=== PATIENT | female | born 1955 | race Caucasian/White ===

== ENCOUNTER 2020-10-22 11:41 | Outpatient (REF) | payer MEDICARE, SELFPAY ==
--- NOTE | ~2020-10-22 | MM_ITS ---
EXAMINATION: MM SCREENING DIGITAL MAMMOGRAPHY, BILATERAL CLINICAL INFORMATION: Screening. Asymptomatic. The lifetime risk of breast cancer based on the Tyrer-Cuzick Model is 4%. COMPARISON: Mammography: 08/23/2019, 08/19/2018, 05/05/2016 TECHNIQUE: Digital mammography is performed in craniocaudal and mediolateral oblique views along with computer-aided detection (CAD). cat scan technologist notes challenging exam. Imaging and patient positioning tailored to patient capabilities. FINDINGS: The breasts are almost entirely fatty (ACR BI-RADS breast composition Category a). There are no significant masses, abnormal calcifications, or other abnormalities. The axilla are partly obscured related to challenges in positioning. There is a metallic ringlike structure overlying the posterior medial left breast on CC view, likely artifact from earring. The skin contours are smooth. There are no significant changes. MM/MM screening mammo BI IMPRESSION: No mammographic evidence of malignancy. ASSESSMENT: BI-RADS 2: Benign RECOMMENDATION: Routine annual mammography screening. This patient's information was entered into a reminder system with a target due date for their next mammogram.
== END 2020-10-22 11:42 | disposition home or self-care (01) ==
LOC: HO.MAMMO 11:41
PROVIDERS: Visit Provider Internal Medicine
DX: Z12.31 Encounter for screening mammogram for malignant neoplasm of breast (principal)
CPT/HCPCS: 77067

== ENCOUNTER 2021-02-17 11:29 | Emergency (ER) | payer MEDICARE, SELFPAY ==
--- NOTE | ~2021-02-17 | XR_ITS ---
EXAMINATION: XR KNEE, LEFT CLINICAL INFORMATION: Pain COMPARISON: 2011 TECHNIQUE: 5 views of the left knee. FINDINGS: Chronic moderately severe degenerative disease predominates in the lateral compartment with significant joint space loss, subchondral sclerosis and hypertrophic spurring. Persistent or recurrent small joint effusion. Generalized demineralization has worsened. No fracture or dislocation. Continued valgus deformity. Contour deformity of proximal fibula may represent a tiny osteochondroma. XR/XR knee LT 4V IMPRESSION: Chronic degenerative disease predominates in the lateral compartment with near complete joint space loss.
[2021-02-17 11:45] VITALS: BP 145/82; PULSE 61; RESP 16; TEMP 37.2; O2SAT 97; BMI 32.5
--- NOTE | 2021-02-17 13:08 | ED.GENADULT ---
HPI - General Adult General Chief complaint: General Medical Stated complaint: VEIN PAIN L LEG Time Seen by Provider: 02/17/21 12:59 Source: patient Mode of arrival: ambulatory History of Present Illness HPI narrative: 65-year-old female a with a past medical history of arthritis presenting to the ED complaining left knee pain x a few days. Reports slept wrong and woke up with pain. Denies known injury/trauma or fall. Denies numbness, tingling, weakness, fever, chills, redness, calf pain, SOB Onset (ago): day(s) Related Data Allergies Allergy/AdvReac Type Severity Reaction Status Date / Time No Known Allergies Allergy Unverified 02/29/20 15:02 Review of Systems Review of Systems: Constitutional: No Fever, No Chills ENT/Mouth: No Ear Pain, No sore throat Cardiovascular: No Chest Pain, No SOB Respiratory: No Cough, No Sputum, No Wheezing Gastrointestinal: No Nausea, No Vomiting, No Abdominal pain Genitourinary:, No Dysuria, No Urinary Incontinence Musculoskeletal: + joint pain, No Myalgias, + Joint Swelling Skin: No Skin Lesions, No rash Neuro: No Weakness, No Numbness, No Paresthesias Yes all other systems are reviewed and are negative [facility] Past Medical History Attestation statement: The following information was validated with the patient. Medical History (Updated 02/17/21 @ 14:32 by PEDRO Joyce) Arthritis Social History Social History Alcohol intake: never Patient Tobacco Use Status: Never used Tobacco Use of substances other than those prescribed or required for medical reasons: No Advance Directives: No Advance Directives Information Provided: No Physical Exam Vital Signs: Vital Signs: Last Vital Signs Temp 99.0 F 02/17/21 11:45 Pulse 68 02/17/21 13:23 Resp 16 02/17/21 13:23 BP 133/70 02/17/21 13:23 Pulse Ox 98 02/17/21 13:23 Body Mass Index 32.5 Const: General: cooperative, healthy appearing and no acute distress Orientation/consciousness: patient oriented x3 Limitations: no limitations HENMT: Head: Yes normal to inspection Ears: hearing grossly normal bilaterally General nose exam: Normal external nose present Face and sinus: Yes normal facial exam Eyes: General: appearance normal, both eyes and all related structures EOM: EOMs intact bilaterally Neck: Neck: Yes normal visual inspection Resp: Effort & Inspection: normal respiratory effort and no respiratory distress Cardio: Rate: regular rate Peripheral pulses: dorsalis pedis present Skin: Rashes: no rashes Wounds: no wounds Neuro: General: patient oriented x3 Extrem: Other: Left knee without notable deformity. Tender to palpation. Decreased flexion secondary to pain. No calf tenderness. No edema. Neurovascularly intact distally. Course Course Course Narrative: XR knee LT 4V IMPRESSION: Chronic degenerative disease predominates in the lateral compartment with near complete joint space loss. ? >> will place patient in an Jethro wrap to follow-up with orthopedics Medical Decision Making MDM Narrative Medical decision making narrative: 65-year-old female a with a past medical history of arthritis presenting to the ED complaining left knee pain x a few days. On exam VSS, NAD, physical exam as above no appreciable knee deformity. Decreased flexion secondary to pain. Concern for arthritis vs MSK pain vs tendons/ligamental or meniscal injury. Low concern for fracture or dislocation Plan: X-ray Discharge Plan Discharge Clinical Impression: Degenerative joint disease Patient Disposition: Home, Self-Care Instructions: Osteoarthritis (ED) Additional Instructions: Wear Jethro wrap at home as needed for comfort/Stability Naproxen as an anti-inflammatory/pain medication, take with food Your x-ray shows Referrals: Zaid Lim MD [Physician] - 1 week
[2021-02-17 13:23] VITALS: BP 133/70; PULSE 68; RESP 16; O2SAT 98
[2021-02-17 14:40] VITALS: BP 139/66; PULSE 68; RESP 16; O2SAT 98
== END 2021-02-17 14:46 | disposition home or self-care (01) ==
PROVIDERS: Emergency Provider Emergency Medicine; PCP Internal Medicine
DX: M17.12 Unilateral primary osteoarthritis, left knee (principal); M25.562 Pain in left knee
CPT/HCPCS: 73564; 99283; 99284

== ENCOUNTER 2021-11-12 11:46 | Outpatient (REF) | payer OTHER, SELFPAY ==
--- NOTE | ~2021-11-12 | MM_ITS ---
EXAMINATION: MM SCREENING DIGITAL BREAST TOMOSYNTHESIS, BILATERAL CLINICAL INFORMATION: Screening. Asymptomatic. The lifetime risk of breast cancer based on the Tyrer-Cuzick Model is 4%. COMPARISON: Mammography: 10/22/2020, 08/23/2019, 08/19/2018 TECHNIQUE: Digital breast tomosynthesis is performed in both the craniocaudal and mediolateral oblique views along with computer-aided detection (CAD). Synthesized 2D images are generated from the tomosynthesis. Additional left CC view is provided. Limited range of motion, technically challenging exam. Patient imaged sitting. Exam tailored to patient capabilities. FINDINGS: The breasts are almost entirely fatty (ACR BI-RADS breast composition Category a). There are no significant masses, abnormal calcifications, or other abnormalities. No developing density or architectural abnormality. No skin thickening. No significant changes. MM/MM tomosynthesis screening BI IMPRESSION: No mammographic evidence of malignancy. ASSESSMENT: BI-RADS 1: Negative RECOMMENDATION: Routine annual mammography screening. This patient's information was entered into a reminder system with a target due date for their next mammogram.
== END 2021-11-12 11:47 | disposition home or self-care (01) ==
LOC: HO.MAMMO 11:46
PROVIDERS: PCP Internal Medicine; Visit Provider Internal Medicine
DX: Z12.31 Encounter for screening mammogram for malignant neoplasm of breast (principal)
CPT/HCPCS: 77063; 77067

== ENCOUNTER 2022-11-30 12:29 | Outpatient (REF) | payer OTHER, SELFPAY ==
--- NOTE | ~2022-11-30 | MM_ITS ---
EXAMINATION: MM SCREENING DIGITAL BREAST TOMOSYNTHESIS, BILATERAL CLINICAL INFORMATION: Screening. Asymptomatic. The lifetime risk of breast cancer based on the Tyrer-Cuzick Model is 3%. COMPARISON: Mammography: 11/12/2021, 10/22/2020, 10/23/2019. TECHNIQUE: Digital breast tomosynthesis is performed in both the craniocaudal and mediolateral oblique views along with computer-aided detection (CAD). Synthesized 2D images are generated from the tomosynthesis. FINDINGS: The breasts are almost entirely fatty (ACR BI-RADS breast composition Category a). There are no significant masses, abnormal calcifications, or other abnormalities. Background stromal and fibroglandular densities are stable. No developing density or architectural abnormality. The axilla and skin contours are unremarkable. MM/MM tomosynthesis screening BI IMPRESSION: No mammographic evidence of malignancy. ASSESSMENT: BI-RADS 1: Negative RECOMMENDATION: Routine annual mammography screening. This patient's information was entered into a reminder system with a target due date for their next mammogram.
== END 2022-11-30 12:30 | disposition home or self-care (01) ==
LOC: HO.MAMMO 12:29
PROVIDERS: PCP Internal Medicine; Visit Provider Internal Medicine
DX: Z12.31 Encounter for screening mammogram for malignant neoplasm of breast (principal)
CPT/HCPCS: 77063; 77067

== ENCOUNTER 2024-01-19 14:28 | Outpatient (REF) | payer OTHER, SELFPAY ==
--- NOTE | ~2024-01-19 | MM_ITS ---
EXAMINATION: MM SCREENING DIGITAL BREAST TOMOSYNTHESIS, BILATERAL CLINICAL INFORMATION: Screening. Asymptomatic. COMPARISON: Mammography: This study is compared with prior exams dating back to 2020. TECHNIQUE: Digital breast tomosynthesis is performed in both the craniocaudal and mediolateral oblique views along with computer-aided detection (CAD). Synthesized 2D images are generated from the tomosynthesis. FINDINGS: The breasts are almost entirely fatty (ACR BI-RADS breast composition Category a). Due to the patient's difficulties with mobility of her neck, this examination is limited with respect to the left breast since the patient was not able to the left her head. The superior third of the left breast is obscured by the patient's lower face. The deepest fifth of the left breast in the CC projection is obscured by the patient's chin. There are no significant masses, abnormal calcifications, or other abnormalities. There is a single, subcentimeter benign calcification in the right retroareolar region. MM/MM tomosynthesis screening BI IMPRESSION: No mammographic evidence of malignancy. ASSESSMENT: BI-RADS BI-RADS 2 - Benign Findings RECOMMENDATION: Routine annual mammography screening. 1 year F/U This examination should not preclude the clinical evaluation of a suspicious palpable abnormality. This patient's information was entered into a reminder system with a target due date for their next mammogram. Electronically signed by: Allie Hamilton MD 02/11/2024 12:33 PM EDT
== END 2024-01-19 14:29 | disposition home or self-care (01) ==
LOC: HO.MAMMO 14:28
PROVIDERS: PCP Internal Medicine; Visit Provider Internal Medicine
DX: Z12.31 Encounter for screening mammogram for malignant neoplasm of breast (principal)
CPT/HCPCS: 77063; 77067

== ENCOUNTER → 2024-01-19 14:45 | Outpatient (BNV) | payer OTHER, SELFPAY | PROVIDERS: PCP Internal Medicine; Visit Provider Radiology Diagnostic Radiology | DX: Z12.31 Encounter for screening mammogram for malignant neoplasm of breast (principal) | CPT/HCPCS: 77063; 77067 ==